=== PATIENT | female | born 1935 | race Caucasian/White ===

== ENCOUNTER 2016-07-23 05:38 | Observation (INO) | payer MEDICARE, OTHER ==
[~2016-07-23] VITALS: Ht 144.8 cm; Wt 92.0 kg
[~2016-07-23 05:38] MED LIST: ASPI-110 PO; BYST10TA2 PO; HYDR12.56 PO; MELO7.5T4 PO; MULTTAB67 PO; RAMI5CAP PO; RANI1TAB5 PO; SIMV20TA PO; VITA500T PO
[2016-07-23] MEDS ORDERED: ceFAZolin 2 GM PREMIX 50 ML ONE (06:08)
[2016-07-23] MEDS ORDERED: ceFAZolin 2 GM PREMIX 50 ML IV SCH (06:15)
[2016-07-23] MEDS ORDERED: METH2.5T PO (06:21)
[2016-07-23] MEDS ORDERED: FOLI1TAB4 PO (06:21)
[2016-07-23 06:22] VITALS: BP 133/68; PULSE 68; RESP 18; TEMP 97.9; O2SAT 98
[2016-07-23] MEDS ORDERED: LACTATED RINGER'S 1000 ML IV SCH (06:30)
[2016-07-23] MEDS ORDERED: SODIUM CHLORID 0.9% 500 ML IV SCH (06:30)
[2016-07-23] MEDS ORDERED: INSULIN HUMAN REGULAR 1,000 UNITS/10 ML VIAL SQ PRN (06:30)
[2016-07-23] MEDS ORDERED: METOPROLOL TARTRATE 25 MG TAB PO PRN (06:30)
[2016-07-23 06:50] VITALS: PULSE 66
[2016-07-23] MEDS ORDERED: MIDAZOLAM HCL 5 MG/5 ML VIAL ONE (06:50)
[2016-07-23] MEDS ORDERED: BUPIVACAINE/EPINEPHRINE 0.25% PF 30 ML VIAL ONE (07:06)
[2016-07-23] MEDS ORDERED: DICLOFENAC SODIUM 37.5 MG/ML VIAL IV PUSH ONE (07:18)
[2016-07-23] MEDS ORDERED: fentaNYL CITRATE 250 MCG/5 ML AMP ONE (07:18)
[2016-07-23] MEDS ORDERED: ACETAMINOPHEN 1000 MG/100 ML VIAL IV ONE (07:18)
[2016-07-23] MEDS ORDERED: FAMOTIDINE 20 MG/2 ML VIAL ONE (07:18)
--- NOTE | 2016-07-23 09:54 | PD.OP ---
Operative Report Date of Surgery: Jul 23, 2016 Preoperative Diagnosis: incarcerated VIH hernia, UH Postoperative Diagnosis: same Procedure: Lap reduction and repair incarcerated VIH and UH with Goretex dual mesh 15 x 19 x1 Anesthesia: general Surgeon: Florencio Adair Assistant Bookkeeper(s): Violetta VALLADARES Operation and Findings: UH with omentum, L mid abdominal hernia defect with incarcerated omentum and transverse colon. EBL less than 25 ml Florencio Adair MD Jul 23, 2016 09:53
[2016-07-23] MEDS ORDERED: *RESP: ALBUTEROL 2.5 MG/3 ML NEB (PRN) PERIprocedural Use ONLY NEB ONE (10:02)
[2016-07-23] MEDS ORDERED: *morphine SULFATE 8 MG/ML PERIprocedure ONLY ONE (10:06)
[2016-07-23] MEDS ORDERED: Post-op Orders (for Pharmacy) MISC XX ONE (10:15)
[2016-07-23] MEDS ORDERED: SODIUM CHLORIDE 0.9% FLUSH 5 ML FLUSH IVF PRN (10:15)
--- NOTE | 2016-07-23 10:52 | EKG ---
Date Performed: 07/23/2016 Time Performed: 07:25:50 PTAGE: 81 years EKG: Sinus rhythm INFERIOR MYOCARDIAL INFARCTION , PROBABLY OLD ABNORMAL ECG PREVIOUS TRACING : 01/14/2011 17.25 Compared to prior tracing no significant change DOCTOR: Tony Garcia Interpretating Date/Time 07/23/2016 10:50:36
[2016-07-23] MEDS ORDERED: METHOTREXATE 2.5 MG TAB PO SCH (11:00)
[2016-07-23] MEDS ORDERED: MORPHINE SULFATE 8 MG/ML INJ IV PUSH PRN (11:00)
[2016-07-23] MEDS ORDERED: ACETAMINOPHEN 1000 MG/100 ML VIAL IV SCH (11:00)
[2016-07-23] MEDS ORDERED: ONDANSETRON HCL 4 MG/2 ML VIAL IV PRN (11:00)
[2016-07-23] MEDS ORDERED: MAGNESIUM HYDROXIDE SUSP 30 ML CUP PO PRN (11:00)
[2016-07-23] MEDS ORDERED: ACETAMINOPHEN/HYDROcodone 325 MG/5 MG TAB PO PRN ×2 (11:00)
[2016-07-23] MEDS ORDERED: DO NOT ADM ANY ANTICOAGULANT DRUGS XX PRN (11:15)
[2016-07-23] MEDS: SODIUM CHLOR 0.9% 1000 ML INJ 1,000 ML IV SCH ×2 (11:15→23:00)
[2016-07-23] MEDS ORDERED: KETOROLAC TROMETHAMINE 30 MG/ML (IVP) VIAL ONE (11:44)
[2016-07-23] MEDS ORDERED: *ONDANSETRON 4 MG VIAL PERIprocedural Use ONLY ONE (11:45)
[2016-07-23] MEDS ORDERED: BUPIVACAINE LIPOSOME PF 1.3% 20 ML VIAL ONE (12:13)
[2016-07-23] MEDS ORDERED: DEXAMETHASONE SOD PHOS PF 10 MG/ML VIAL IV ONE (12:13)
[2016-07-23] MEDS ORDERED: ONDANSETRON HCL 4 MG/2 ML VIAL IV PUSH ONE (14:49)
[2016-07-23] MEDS ORDERED: LACTATED RINGER'S 1000 ML INJ 1,000 ML IV ONE (14:49)
[2016-07-23] MEDS ORDERED: NEOSTIGMINE 3 MG/3 ML SYR IV ONE (14:49)
[2016-07-23] MEDS ORDERED: PROPOFOL 200 MG/20 ML AMP IV ONE (14:49)
[2016-07-23] MEDS: KETOROLAC TROMETHAMINE 30 MG/ML (IVP) VIAL IV PUSH SCH ×2 (14:55→22:56)
[2016-07-23] MEDS: ACETAMINOPHEN 1000 MG/100 ML VIAL IV SCH ×2 (15:07→22:54)
[2016-07-23 16:00] VITALS: BP 133/60; PULSE 72; RESP 20; TEMP 95.6; O2SAT 90
[2016-07-23 20:00] VITALS: BP 136/72; PULSE 76; RESP 18; TEMP 97.8; O2SAT 96
[2016-07-23] MEDS ORDERED: PRAVASTATIN SOD 40 MG TAB PO SCH (21:00)
[2016-07-23] MEDS: DOCUSATE SODIUM 100 MG CAP PO SCH (22:54)
[2016-07-23] MEDS: RAMIPRIL 5 MG CAP PO SCH (22:54)
[2016-07-23] MEDS: SODIUM CHLORIDE 0.9% FLUSH 5 ML FLUSH IVF SCH (22:55)
--- NOTE | 2016-07-23 23:16 | MP ---
cc: DIANA DHALIWAL MD DATE OF SURGERY 07/23/16 PREOPERATIVE DIAGNOSIS Incarcerated ventral incisional hernia, recurrent POSTOPERATIVE DIAGNOSIS 1. Incarcerated ventral incisional hernia, recurrent. 2. Umbilical hernia PROCEDURES Laparoscopic reduction and repair incarcerated ventral incisional hernia and umbilical hernia with [place]-Terrence dual mesh 15 x [address] Jeff Dhaliwal LEGAL TRANSCRIBER Dorinda Chapman ANESTHESIA General plus preoperative tap block INDICATIONS FOR PROCEDURE This is a very pleasant 81-year-old woman who was sent to me in consultation by Dr. Josh Brown for a 5-year history of a left side abdominal bulge. Creates a shooting pains. 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 She has had an upper abdominal cyst removed previously as well. The patient is having increasing discomfort and the bulges is nonreducible. INTRAOPERATIVE FINDINGS Umbilical hernia with omentum. Left mid abdominal hernia defect with incarcerated omentum and bowel. Contents reduced without injury. Estimated blood loss less than 25 mL. PROCEDURE IN DETAIL The patient identified as Aly Light, taken to operating room and placed in supine position. Sequential compression devices were placed on bilateral lower extremities. Following induction of adequate general endotracheal anesthesia, [place] catheter was placed. The patient's abdomen was prepped and draped in usual sterile fashion with Chloraprep and an [place]ob[place] drape. A time-out procedure was performed. Following completion of time-out procedure to everyone's satisfaction within the room, a right lateral subcostal 2 cm transverse incision was carried out with a scalpel. Hemostat was used to spread to the subcutaneous fatty tissue and the anterior fascia. Surgeon's finger was then used to penetrate the posterior fascia and peritoneum allowing for a safe entry into the peritoneal cavity. The applied medical balloon Arndt trocars was placed in the peritoneal cavity its balloon inflated to insufflation until level of 15 mmHg ensued. Laparoscopic was placed in the abdominal cavity and adhesions to the midline with some omentum stuck and an umbilical hernia defect were immediately identified. Two right-sided 5 mm trocars were then placed in the peritoneal cavity direct laparoscopic view after incision of skin with a scalpel. Adhesiolysis was performed taking down the omental adhesions using a combination of sharp dissection, blunt dissection and electrocautery only on small bleeding points. Omentum from the umbilical hernia defect was easily reduced. Omentum and intestine from the left mid abdominal defect was slightly more challenging. With blunt dissection, it was able to be reduced and released from a peritoneal pseudo sac. Upon complete reduction, there was no continued ooze or bleeding. The photographs were taken of the hernia defects. The hernia defects were measured and a 15 x 19 x 1 piece of [place]-Terrence dual mesh was selected. Sutures were placed at 12, 3, 6 and 9 o'clock position on the rough side of the mesh, the corduroy side. CVO suture of [place] was used. The mesh was then rolled, placed through the subcostal port into the peritoneal cavity and unrolled. Using the [place] suture passer through separate tiny stab incisions in the skin, the sutures were brought out at the 3 o'clock, 6 o'clock, 12 o'clock and then 9 o'clock position. The abdominal insufflation pressure was decreased down to eight during this portion of the procedure to provide a nice taut mesh coverage over the hernia defects. The sutures were tied down. The mesh was tacked along the periphery every 1-2 cm using the protack device. The inferior right trocar after tacking between the 12 and 3 o'clock position was repositioned to the left upper quadrant under direct laparoscopic view facilitating tacking then from the 6 to 9 o'clock position, the 9 to 12 o'clock position and then completion of tacking was performed between the 3 and 6 o'clock position. This facilitated a nice taut coverage of the hernia defects with broad coverage. Additional suture fixation was then performed using the [place] suture passer and CVO suture. Sutures were placed between the 6 and the 9 o'clock position, between the 0 and 12 o'clock position and between the 6 and 3 o'clock position and between the 12 and 3 o'clock position. Photographs were taken of the completed repair. Small amount of bloody drainage was suctioned out of the peritoneal cavity. Again, no persistent ooze or bleeding was occurring at the end of the case. Trocars were removed under direct visualization. There was no evidence of bleeding from trocar sites. The abdomen was desufflated through the subcostal port which was then removed. Posterior fascia and peritoneum were closed with interrupted [id number] 0 Vicryl sutures. The anterior fascia was closed in a similar fashion. Skin incisions were approximated with 4-0 Monocryl subcuticular sutures at trocar sites. All incision sites were approximated then with Mastisol 1/2" brown Steri-Strips. A dressing was completed with sterile towel and abdominal binder. The patient tolerated the procedure without apparent complication. Sponge, needle and instrument counts were correct at the end of case. The surgical procedure was assisted by my nurse practitioner. My AUTOMATIC LATHE OPERATOR s presence was necessary throughout the procedure to provide adequate visualization and assist in mesh fixation. My AUTOMATIC LATHE OPERATOR was assisting me throughout the duration of the procedure and her skill set was medically necessary to complete the procedure. During the surgical case the industrial cleaning technician was working at the back table and the nurse practitioner was directly assisting me. MD FREDO Flaherty/ /9:57 AM /10:54 PM JORGE
[2016-07-24] VITALS: BP 129/74; PULSE 76; RESP 20; TEMP 97.6; O2SAT 97
[2016-07-24] MEDS: ACETAMINOPHEN 1000 MG/100 ML VIAL IV SCH ×2 (02:32→07:40)
[2016-07-24 04:00] VITALS: BP 128/64; PULSE 71; RESP 20; TEMP 98; O2SAT 94
[2016-07-24] MEDS: KETOROLAC TROMETHAMINE 30 MG/ML (IVP) VIAL IV PUSH SCH ×2 (05:39→11:00)
[2016-07-24] MEDS: SODIUM CHLORIDE 0.9% FLUSH 5 ML FLUSH IVF SCH (07:38)
[2016-07-24] MEDS: DOCUSATE SODIUM 100 MG CAP PO SCH (07:39)
[2016-07-24] MEDS: RAMIPRIL 5 MG CAP PO SCH (07:40)
[2016-07-24 08:00] VITALS: BP 124/58; PULSE 75; RESP 18; TEMP 96.9; O2SAT 92
[2016-07-24] MEDS ORDERED: ENOXAPARIN SODIUM 30 MG/0.3 ML SYRINGE SQ SCH (09:00)
[2016-07-24] MEDS ORDERED: ASPIRIN EC 81 MG TABEC PO SCH (09:00)
[2016-07-24] MEDS ORDERED: NEBIVOLOL 10 MG TAB PO SCH (09:00)
[2016-07-24] MEDS ORDERED: MULTIVITAMIN TAB PO SCH (09:00)
[2016-07-24] MEDS ORDERED: FOLIC ACID 1 MG TAB PO SCH (09:00)
[2016-07-24] MEDS ORDERED: ZOFR4TAB PO (10:39)
--- NOTE | 2016-07-24 10:43 | HHI.DS ---
Discharge Summary Admission Date Jul 23, 2016 at 14:09 Discharge Date: Jul 24, 2016 Admitting Diagnosis Brief History 81 year old female POD1 lap incisional hernia repair with mesh. PE at Discharge Alert and awake Cardio: RRR Resp: CTAB Abd: lap sites c/d/i; abdominal binder on No edema Hospital Course This is an 81 year old female POD1 lap incisional hernia repair with mesh by Dr. Adair. The patient has done well post-operatively with only mild nausea the night of surgery. The patient has been able to tolerate regular meals. The patient's pain is controlled. She will be provided with a prescription for Tramadol and Zofran. She will follow up in the office in about 7-10 days. She can wear the abdominal binder for comfort if she wishes. Pt Condition on Discharge: Good Discharge Disposition: Discharge Home Discharge Instructions DIET: Follow Instructions for: As Tolerated, No Restrictions Activities you can perform: See Additionl Instruction Other Activity Instructions: Okay to shower this evening Leave steri strips on Wear abdominal binder for comfort Violetta Chapman Jul 24, 2016 10:43
[2016-07-24] MEDS: SODIUM CHLOR 0.9% 1000 ML INJ 1,000 ML IV SCH (11:06)
[2016-07-24] MEDS ORDERED: TRAM50TA PO (11:56)
[2016-07-24 12:00] VITALS: BP 135/59; PULSE 78; RESP 19; TEMP 96.2; O2SAT 92
== END 2016-07-24 13:07 | disposition home or self-care (01) ==
LOC: HSDC 05:38 → UNDOADMIN 10:12 → HSDI 10:12 → N07B 14:09
PROVIDERS: ADMIT Surgery Trauma Surgery; ATTEND Surgery Trauma Surgery
DX: K43.0 Incisional hernia with obstruction, without gangrene (principal); I10 Essential (primary) hypertension; E78.5 Hyperlipidemia, unspecified
CPT/HCPCS: 00832; 49654; 64488; 93005; 94150; 94664; C1781; C9290; G0378; J0131; J1100; J1130; J1650; J1885; J2250; J2270; J2405; J2710; J3010; J7030; J7120; J7613; J0690